=== PATIENT | male | born 1990 | race Caucasian/White ===

== ENCOUNTER 2017-05-22 21:44 | Emergency (ER) | payer BC ==
--- NOTE | 2017-05-22 22:10 | EDPHY ---
H & P Stated Complaint: LAC R SECOND DIGIT Time Seen by Provider: 05/22/17 22:10 HPI/ROS: HPI: This is a 27-year-old male presents with Chief Complaint: Left 2nd digit on right hand Location: Tip of left 2nd digit on right hand Quality: Cut Duration: Prior to arrival Signs and Symptoms: + bleeding, no radiation, no numbness, no weakness, no tingling, no decreased range of motion, no swelling, + pain Timing: Acute Severity: Moderate Context: Patient is right-hand dominant, was using a knife to open up a package of his new knife, when he slipped and accidentally cut the tip of his right 2nd finger. Immediately started to bleed and would not stop despite direct pressure. He notes moderate nonradiating pain that is worsened with touching the area. His tetanus is up-to-date. Modifying Factors: Direct pressure Comment: ROS: see HPI Constitutional: No fever, no chills, no weight loss Eyes: No blurred vision Respiratory: No shortness of breath, no cough Cardiovascular: No chest pain Gastrointestinal: No nausea, no vomiting no diarrhea Genitourinary: No dysuria Extremities: No myalgias Neurologic: No weakness, no numbness Skin: No rashes Hematologic: No bruising, no bleeding MEDICAL/SURGICAL/SOCIAL HISTORY: PSH: T&A PMH: bi polar; generalized anxiety Social history: Employed. CONSTITUTIONAL: Anxious adult male, awake and alert, no obvious distress HEENT: Atraumatic and normocephalic, PERRL, EOMI. Tympanic membranes clear. Oropharynx clear, no exudate and moist pink mucosa. Airway patent. No lymphadenopathy. No meningismus. Cardiovascular: Normal S1/S2, regular rate, regular rhythm, without murmur rub or gallop. PULMONARY/CHEST: Symmetrical and nontender. Clear to auscultation bilaterally. Good air movement. No accessory muscle usage. ABDOMEN: Soft, nondistended, nontender, no rebound, no guarding, no peritoneal signs, no masses or organomegaly. No CVAT. EXTREMITIES: 2/2 radial pulses, strength 5/5, right 2nd digit distal tip; 1 cm linear, simple laceration, sparing the nail. DIP/PIP/MCP flexion, extension, light touch sensation fully intact. no deformities, no clubbing, no cyanosis or edema. NEUROLOGICAL: no focal neuro deficits. GCS 15. SKIN: Warm and dry, no erythema. no rash. Good capillary refill. Source: Patient Exam Limitations: No limitations - Personal History Current Tetanus Diphtheria and Acellular Pertussis (TDAP): Yes Tetanus Vaccine Date: 2012 - Medical/Surgical History Hx Asthma: Yes Hx Chronic Respiratory Disease: No Hx Diabetes: No Hx Cardiac Disease: No Hx Renal Disease: No Hx Cirrhosis: No Hx Alcoholism: Yes Hx HIV/AIDS: No Hx Splenectomy or Spleen Trauma: No Other PMH: PSH: T&A. PMH: bi polar; generalized anxiety - Social History Smoking Status: Heavy smoker Constitutional: Initial Vital Signs Temperature (C) 37.2 C 05/22/17 21:59 Heart Rate 105 H 05/22/17 21:59 Respiratory Rate 16 05/22/17 21:59 Blood Pressure 136/85 H 05/22/17 21:59 O2 Sat (%) 96 05/22/17 21:59 O2 Delivery Mode Room Air Allergies/Adverse Reactions: propranolol Allergy (Verified 01/29/15 13:09) shellfish derived [shrimp] Allergy (Verified 01/29/15 13:10) Home Medications: Medication Instructions Recorded Gabapentin 01/29/15 LaMICtal 01/29/15 Risperidone 01/29/15 Medical Decision Making Procedures: Procedure: Laceration repair. Verbal consent was obtained from the patient. The 1 cm, simple, linear laceration on the distal tip of right 2nd digit was anesthetized in the usual fashion using a digital block. The wound was irrigated, draped and explored to its base with a gloved finger. There were no deep structures involved. No tendon injury was identified. The wound was repaired with #2, 6-0 Prolene in a simple interrupted pattern. Good hemostasis was achieved and clean sterile dressing applied. The procedure was performed by myself. ED Course/Re-evaluation: Tetanus up-to-date Wound and laceration repair; dressing applied No signs of neurovascular compromise/tenting of skin/compartment syndrome/ extremities and joints examined above and below area of concern and are neurovascularly intact. This patient was seen under the supervision of my secondary supervising physician. I evaluated care for this patient independently. Patient's presentation, labs/imaging, treatment and plan of care were discussed with secondary supervising physician. Differential Diagnosis: Differential diagnosis includes but is not limited to laceration, nail involvement, tendon injury, nerve injury, fracture, foreign body. Departure - Departure Disposition: Home, Routine, Self-Care Clinical Impression: Laceration of finger of right hand Qualifiers: Encounter type: initial encounter Finger: index finger Damage to nail status: without damage Foreign body presence: without foreign body Qualified Code(s): S61.210A - Laceration without foreign body of right index finger without damage to nail, initial encounter Condition: Good Instructions: Finger Laceration (ED) Additional Instructions: Keep the dressing dry and in place for 48 hours. After 48 hours, you may remove the dressing; wash the site daily with mild soap and water; then pat dry. Take Tylenol 650 mg every 4 hours and/or Ibuprofen 600 mg every 8 hours with food as needed for pain. Apply ice for 30 minutes at a time; 2-3 times per day for the next 1-2 days. Return to the emergency room in 7-10 days to have your stitches removed. Monitor for signs of infection. Referrals: [facility],. [Clinic] - As per Instructions
[2017-05-22 22:55] VITALS: BP 132/84; PULSE 74; RESP 14; TEMP 97.7; O2SAT 97
== END 2017-05-22 22:54 | disposition home or self-care (01) ==
PROC: 0HQFXZZ Repair Right Hand Skin, External Approach (ICD-10-PCS; principal; 2017-05-22)
DX: S61.210A Laceration without foreign body of right index finger without damage to nail, initial encounter (principal); F17.200 Nicotine dependence, unspecified, uncomplicated; J45.909 Unspecified asthma, uncomplicated; W26.0XXA Contact with knife, initial encounter

== ENCOUNTER 2017-05-29 23:36 | Emergency (ER) | payer BC ==
[2017-05-29 23:47] VITALS: BP 127/76; PULSE 110; RESP 18; TEMP 97.5; O2SAT 98
--- NOTE | 2017-05-29 23:49 | EDPHY ---
H & P Time Seen by Provider: 05/29/17 23:40 HPI/ROS: CHIEF COMPLAINT: "I can't sleep " HISTORY OF PRESENT ILLNESS: 27-year-old male history of bipolar disorder complaining of insomnia. Used methamphetamine 2 weeks ago. No suicidal or homicidal ideation. No hallucination. No self-injury. He drove himself to the ER PHYSICAL EXAM (Prior to examination, patient consented to physical exam, hands were washed and my usual and customary physical exam procedures followed) 1) GENERAL: Well-developed, well-nourished, alert and oriented. Appears anxious. 2) HEAD: Normocephalic 3) HEENT: sclera anicteric 4) LUNGS: Breathing comfortably. Smoking Status: Heavy smoker Allergies/Adverse Reactions: propranolol Allergy (Verified 05/29/17 23:47) shellfish derived [shrimp] Allergy (Verified 05/29/17 23:47) Home Medications: Medication Instructions Recorded Gabapentin 01/29/15 LaMICtal 01/29/15 Risperidone 01/29/15 MDM/Departure - [facility] ED Course/Re-evaluation: 11:49 p.m.: It is currently Tuesday night. The patient did not know where he he could go to discuss his increased anxiety and insomnia. He denies suicidal or homicidal ideation. He did use methamphetamine 2 weeks ago. He is currently answering questions appropriately. We discussed options including providing benzodiazepine at this time however as he drove he declines this option. He is noted to be tachycardic at 110 bpm. He has no complaints of pain or discomfort. No chest pain. I recommended further evaluation in the ER however upon learning of the 24 hr mental health walk-in clinic he states that he would like to drive himself there to be evaluated. He denies suicidal or homicidal ideation. I do not think he meets criteria for an M1 hold at this time. Care of patient under supervision of secondary supervising physician Dr Daniel . - Depart Disposition: Home, Routine, Self-Care Clinical Impression: Insomnia Qualifiers: Insomnia type: other insomnia Qualified Code(s): G47.09 - Other insomnia Condition: Good Instructions: Insomnia (ED) Stand Alone Forms: Work Excuse Referrals: [facility],. [Clinic] - As per Instructions (Go directly to [facility]in [facility] at [address] [place] [address], [place], [place] )
== END 2017-05-30 00:01 | disposition home or self-care (01) ==
DX: G47.09 Other insomnia (principal); F17.200 Nicotine dependence, unspecified, uncomplicated

== ENCOUNTER 2017-10-11 01:48 | Emergency (ER) | payer BC ==
--- NOTE | 2017-10-11 02:04 | EDPHY ---
H & P Stated Complaint: c/o swelling/pain in L groin/testicle, thinks may have a hernia Time Seen by Provider: 10/11/17 02:04 HPI/ROS: HPI CHIEF COMPLAINT: Left testicle pain, left epididymal cord pain HISTORY OF PRESENT ILLNESS: Patient 27-year-old male, he is otherwise healthy but does have a history of bipolar disorder, has had urinary tract infection in the past and epididymitis, he presents emergency room with left-sided testicular pain and left epididymis pain. Patient reports last he went to his Family Medicine office and was tested for urinary tract infection and STI. He is paced on Keflex for UTI. He does not know the culture results nor does he know the testing of the STI. He states approximately an hour ago developed some left testicular pain and swelling. Decided come the emergency room for evaluation. He does report a clear drip from his penis as well. Endorses dysuria still. No fever. No back pain. Denies abdominal pain. The pain goes from is less testicle up his left epididymal cord. And reports that swollen. No trauma. No skin lesions. Past Medical History: Epididymitis, bipolar disorder, UTI Past Surgical History: No recent surgery Social History: Denies drugs alcohol tobacco. Family History: Noncontributory ROS REVIEW OF SYSTEMS: A comprehensive 10 point review of systems is otherwise negative aside from elements mentioned in the history of present illness. Exam Constitutional triage nursing summary reviewed, vital signs reviewed, awake/ alert. Eyes normal conjunctivae and sclera, EOMI, PERRLA. HENT normal inspection, atraumatic, moist mucus membranes, no epistaxis, neck supple/ no meningismus, no raccoon eyes. Respiratory clear to auscultation bilaterally, normal breath sounds, no respiratory distress, no wheezing. Cardiovascular rate normal, regular rhythm, no murmur, no edema, distal pulses normal. Gastrointestinal soft, non-tender, no rebound, no guarding, normal bowel sounds, no distension, no pulsatile mass. Genitourinary this is a circumcised male, normal cremasteric reflex, normal testicular lie, tender palpation with gentle lifting up on the left testicle, tender palpation down the epididymal cord, no visible hernia. No visible lesions. No pus coming from penile head. No shaft pain. No glands pain. Right testicle normal right epididymal cord normal. No inguinal lymphadenopathy visualized. Musculoskeletal no midline vertebral tenderness, full range of motion, no calf swelling, no tenderness of extremities, no meningismus, good pulses, neurovascularly intact. Skin pink, warm, & dry, no rash, skin atraumatic. Neurologic awake, alert and oriented x 3, AAOx3, moves all 4 extremities equally, motor intact, sensory intact, CN II-XII intact, normal cerebellar, normal vision, normal speech. Psychiatric normal mood/affect. Heme/Lymph/Immune no lymphadenopathy. Differential Diagnosis: Includes but is not limited to in a particular order, UTI, testicular torsion, cystitis, urethritis, STI, gonorrhea, chlamydia, epididymitis, orchitis, varicocele Medical Decision Making: Plan for this patient ultrasound scrotum to rule out testicular torsion, check UA clean, check dirty catch, ibuprofen 800 mg for pain control, p.o. Fluids. Re-evaluate. Re-evaluation: 0314: Patient's ultrasound shows most likely orchitis/epididymitis. There is increased blood flow to the left testes. No evidence of Loss of blood flow or torsion. Patient's urinalysis shows nitrite positive. This is despite being on Keflex orally for recently diagnosed with the UTI. Here in the emergency room I have ordered him IM Rocephin 250 mg, and 2 g of azithromycin for possible STI coverage. As he had a clear drainage from his penile meatus. None on exam. Additionally I will prescribe him doxy for orchitis/epididymitis. Additionally will give him a Urology referral. Additionally understands return emergency room if develops worsening pain, swelling, fever, urinary symptoms. 0345: I did go re-evaluate him he is resting comfortably. Pain well controlled. Tenderness down the epididymal cord. Ultrasound reviewed and urinalysis reviewed. Recommend close follow-up with urology. Additionally recommend return emergency room if there is worsening symptoms He received IM Rocephin here as well as p.o. As a throat. Placed on doxy. Return if worsening symptoms. Source: Patient - Personal History Tetanus Vaccine Date: 2012 - Medical/Surgical History Hx Asthma: Yes Hx Chronic Respiratory Disease: No Hx Diabetes: No Hx Cardiac Disease: No Hx Renal Disease: No Hx Cirrhosis: No Hx Alcoholism: Yes Hx HIV/AIDS: No Hx Splenectomy or Spleen Trauma: No Other PMH: PSH: T&A. PMH: bi polar; generalized anxiety, add, asthma as a child - Social History Smoking Status: Heavy smoker Constitutional: Initial Vital Signs Temperature (C) 37.1 C 10/11/17 01:58 Heart Rate 84 10/11/17 01:58 Respiratory Rate 18 10/11/17 01:58 Blood Pressure 133/88 H 10/11/17 01:58 O2 Sat (%) 99 10/11/17 01:58 O2 Delivery Mode Room Air Allergies/Adverse Reactions: ciprofloxacin Allergy (Verified 10/11/17 02:02) propranolol Allergy (Verified 10/11/17 02:02) shellfish derived [shrimp] Allergy (Verified 10/11/17 02:02) Home Medications: Medication Instructions Recorded Gabapentin 01/29/15 LaMICtal 01/29/15 Risperidone 01/29/15 Doxycycline Hyclate 100 mg PO BID #20 tab 10/11/17 Hydrocodone/APAP 5/325 [[place] 1 - 2 tab PO Q4H PRN #10 tab 10/11/17 5/325] Ibuprofen [Motrin (*)] 800 mg PO Q6-8PRN #20 tab 10/11/17 Medical Decision Making - Data Points Laboratory Results: 10/11/17 10/11/17 02:45 02:45 Urine Color SARINA Urine Appearance CLEAR Urine pH 5.0 (5.0-7.5) Ur Specific [place] 1.021 (1.002-1.030) Urine Protein NEGATIVE (NEGATIVE) Urine Ketones NEGATIVE (NEGATIVE) Urine Blood NEGATIVE (NEGATIVE) Urine Nitrate POSITIVE H (NEGATIVE) Urine Bilirubin NEGATIVE (NEGATIVE) Urine Urobilinogen 4.0 EU H EU (0.2-1.0) Ur Leukocyte Esterase NEGATIVE (NEGATIVE) Urine RBC 1-3 /hpf /hpf (0-3) Urine WBC 1-3 /hpf /hpf (0-3) Ur Epithelial Cells NONE SEEN /lpf /lpf (NONE-1+) Urine Bacteria TRACE /hpf H /hpf (NONE SEEN) Urine Mucus TRACE /lpf /lpf (NONE-1+) Urine Glucose NEGATIVE (NEGATIVE) N.gonorrhoeae RNA (TMA) Pending Medications Given: Discontinued Medications Ibuprofen (Motrin) 800 mg PO EDNOW ONE Stop: 10/11/17 02:19 Last Admin: 10/11/17 02:44 Dose: 800 mg Departure - Departure Disposition: Home, Routine, Self-Care Clinical Impression: Epididymitis Condition: Good Instructions: Epididymitis (ED), Epididymo-Orchitis (ED) Additional Instructions: 1. Take anti-inflammatory pain medicine. 2. [place] for severe pain. 3. Follow up with Urology. Call their for 1st available appointment. 4. Return emergency room if you have worsening pain fever, vomiting. 5. Antibiotics as prescribed. Referrals: NONE *PRIMARY CARE P,. [Primary Care Provider] - As per Instructions Harish Craven MD [Medical Doctor] - As per Instructions Prescriptions: Doxycycline Hyclate 100 mg PO BID #20 tab Hydrocodone/APAP 5/325 [[place] 5/325] 1 - 2 tab PO Q4H PRN #10 tab PRN Reason: Pain, Moderate Ibuprofen [Motrin (*)] 800 mg PO Q6-8PRN #20 tab
[2017-10-11] MEDS ORDERED: IBUPROFEN 800 MG TAB PO ONE (02:18)
[2017-10-11] MEDS ORDERED: AZITHROMYCIN 250 MG TAB PO ONE (03:12)
[2017-10-11 04:08] VITALS: BP 112/80
== END 2017-10-11 04:08 | disposition home or self-care (01) ==
DX: N45.1 Epididymitis (principal); B96.89 Other specified bacterial agents as the cause of diseases classified elsewhere; J45.909 Unspecified asthma, uncomplicated; F17.200 Nicotine dependence, unspecified, uncomplicated
CPT/HCPCS: J0696

== ENCOUNTER 2018-03-30 22:26 | Emergency (ER) | payer BC, OTHER ==
--- NOTE | 2018-03-30 22:37 | EDPHY ---
H & P Time Seen by Provider: 03/30/18 22:32 HPI/ROS: CHIEF COMPLAINT: Lower toe stone ketamine analog HISTORY OF PRESENT ILLNESS: Patient is a 28-year-old man who is staying at the sober living house. He has a history of polysubstance abuse and is currently on Suboxone. He was found unconscious in the bathroom and 911 was called. Initially was called as a cardiac arrest but by the time EMS arrived he was awake and alert and without complaint. He states that he took 2-Fluoro- deschloro-ketamine. He denies co-ingestants. He denies suicidal ideation. Severity: Moderate Modifying factors: None REVIEW OF SYSTEMS: Constitutional: denies: chills, fever, recent illness, recent injury EENTM: denies: blurred vision, double vision, nose congestion Respiratory: denies: cough, shortness of breath Cardiac: denies: chest pain, irregular heart rate, lightheadedness, palpitations Gastrointestinal/Abdominal: denies: abdominal pain, diarrhea, nausea, vomiting, blood streaked stools Genitourinary: denies: dysuria, frequency, hematuria, pain Musculoskeletal: denies: joint pain, muscle pain Skin: denies: lesions, rash, jaundice, bruising Neurological: denies: headache, numbness, paresthesia, tingling, dizziness, weakness Hematologic/Lymphatic: denies: blood clots, easy bleeding, easy bruising Immunologic/allergic: denies: HIV/AIDS, transplant 10 systems reviewed and negative except as noted EXAM: GENERAL: Well-appearing, well-nourished and in no acute distress. HEAD: Atraumatic, normocephalic. EYES: Pupils equal round and reactive to light, extraocular movements intact, sclera anicteric, conjunctiva are normal. ENT: TMs normal, nares patent, oropharynx clear without exudates. Moist mucous membranes. NECK: Normal range of motion, supple without lymphadenopathy or JVD. LUNGS: Breath sounds clear to auscultation bilaterally and equal. No wheezes rales or rhonchi. HEART: Regular rate and rhythm without murmurs, rubs or gallops. ABDOMEN: Soft, nontender, normoactive bowel sounds. No guarding, no rebound. No masses appreciated. BACK: No CVA tenderness, no spinal tenderness, step-offs or deformities EXTREMITIES: Normal range of motion, no pitting or edema. No clubbing or cyanosis. NEUROLOGICAL: Cranial nerves II through XII grossly intact. Normal speech, normal gait. 5/5 strength, normal movement in all extremities, normal sensation , normal reflexes PSYCH: Normal mood, normal affect. SKIN: Warm, dry, normal turgor, no visible rashes or lesions. Source: Patient, EMS Exam Limitations: No limitations - Personal History Tetanus Vaccine Date: 2012 - Medical/Surgical History Hx Asthma: Yes Hx Chronic Respiratory Disease: No Hx Diabetes: No Hx Cardiac Disease: No Hx Renal Disease: No Hx Cirrhosis: No Hx Alcoholism: Yes Hx HIV/AIDS: No Hx Splenectomy or Spleen Trauma: No Other PMH: PSH: T&A. PMH: bi polar; generalized anxiety, add, asthma as a child - Family History Significant Family History: No pertinent family hx - Social History Smoking Status: Heavy smoker Alcohol Use: Heavy Drug Use: Other Constitutional: Initial Vital Signs Temperature (C) 37.3 C 03/30/18 22:29 Heart Rate 84 03/30/18 22:29 Respiratory Rate 18 03/30/18 22:29 Blood Pressure 154/93 H 03/30/18 22:29 O2 Sat (%) 96 03/30/18 22:29 O2 Delivery Mode Room Air Allergies/Adverse Reactions: ciprofloxacin Allergy (Verified 10/11/17 02:02) propranolol Allergy (Verified 10/11/17 02:02) shellfish derived [shrimp] Allergy (Verified 10/11/17 02:02) Home Medications: Medication Instructions Recorded Gabapentin 01/29/15 LaMICtal 01/29/15 Risperidone 01/29/15 Ibuprofen [Motrin (*)] 800 mg PO Q6-8PRN #20 tab 10/11/17 Tamsulosin HCl [Flomax] 03/30/18 Medical Decision Making - Diagnostics EKG Interpretation: An EKG obtained and was read and documented in trace view. Please see trace view for full reading and report. Sinus rhythm, no acute ischemic changes, early repolarization, no interval abnormalities ED Course/Re-evaluation: Patient is completely normal appearing now with stable vital signs and no complaints. I spoke with poison Control who is not familiar with this particular derivative of ketamine but recommends basic typical toxicology practices. His case #[id number] I will obtain an EKG and lab work to check for, ingestants otherwise will likely be able to discharge the patient soon. He denies suicidality. He is probably not welcome back at the sober living house. 12:05 a.m. the patient is eager to leave. He is asymptomatic. His lab work and EKG are reassuring. His friend is going to take him in. Differential Diagnosis: Partial list of the Differential diagnosis considered include but were not limited to; substance abuse, overdose and although unlikely based on the history and physical exam, I also considered suicidality, infection, head injury , arrest. I discussed these differential diagnoses and the plan with the patient as well as the usual and expected course. The patient understands that the diagnosis is provisional and that in medicine we are not always correct and that further workup is often warranted. Usual and customary warnings were given. All of the patient's questions were answered. The patient was instructed to return to the emergency department should the symptoms at all worsen or return, otherwise to followup with the physician as we discussed. - Data Points Laboratory Results: Laboratory Results 03/30/18 22:30 03/30/18 22:30 03/30/18 03/30/18 22:30 22:30 WBC 10.96 10^3/uL H 10^3/uL (3.80-9.50) RBC 5.03 10^6/uL 10^6/uL (4.40-6.38) Hgb 15.3 g/dL g/dL (13.7-17.5) Hct 46.2 % % (40.0-51.0) MCV 91.8 fL fL (81.5-99.8) MCH 30.4 pg pg (27.9-34.1) MCHC 33.1 g/dL g/dL (32.4-36.7) RDW 12.8 % % (11.5-15.2) Plt Count 194 10^3/uL 10^3/uL (150-400) MPV 11.0 fL fL (8.7-11.7) Neut % (Auto) 59.6 % % (39.3-74.2) Lymph % (Auto) 33.5 % % (15.0-45.0) [place] % (Auto) 5.5 % % (4.5-13.0) Eos % (Auto) 0.6 % % (0.6-7.6) Baso % (Auto) 0.3 % % (0.3-1.7) Nucleat RBC Rel Count 0.0 % % (0.0-0.2) Absolute Neuts (auto) 6.53 10^3/uL H 10^3/uL (1.70-6.50) Absolute Lymphs (auto) 3.67 10^3/uL H 10^3/uL (1.00-3.00) Absolute Monos (auto) 0.60 10^3/uL 10^3/uL (0.30-0.80) Absolute Eos (auto) 0.07 10^3/uL 10^3/uL (0.03-0.40) Absolute Basos (auto) 0.03 10^3/uL 10^3/uL (0.02-0.10) Absolute Nucleated RBC 0.00 10^3/uL 10^3/uL (0-0.01) Immature Gran % 0.5 % % (0.0-1.1) Immature Gran # 0.06 10^3/uL 10^3/uL (0.00-0.10) Sodium 137 mEq/L mEq/L (135-145) Potassium 3.9 mEq/L mEq/L (3.3-5.0) Chloride 103 mEq/L mEq/L (97-110) Carbon Dioxide 23 mEq/l mEq/l (22-31) Anion Gap 11 mEq/L mEq/L (6-14) BUN 12 mg/dL mg/dL (7-23) Creatinine 1.0 mg/dL mg/dL (0.7-1.3) Estimated GFR > 60 Glucose 140 mg/dL H mg/dL (70-100) Calcium 10.9 mg/dL H mg/dL (8.5-10.4) Phosphorus 2.9 mg/dL mg/dL (2.5-4.5) Salicylates < 1.0 mg/dL L mg/dL (2.0-20.0) Acetaminophen < 10 mcg/mL L mcg/mL (10-30) Departure - Departure Disposition: Home, Routine, Self-Care Clinical Impression: Polysubstance abuse Condition: Good Instructions: Polysubstance Abuse (ED) Referrals: Patient,NotPresent [Unknown] - As per Instructions Roshni Resendez MD [Medical Doctor] - As per Instructions
--- NOTE | 2018-03-30 23:01 | CPEKG ---
Test Reason : OPEN Blood Pressure : / mmHG Vent. Rate : 066 BPM Atrial Rate : 068 BPM P-R Int : 186 ms QRS Dur : 104 ms QT Int : 374 ms P-R-T Axes : 002 130 059 degrees QTc Int : 392 ms Sinus rhythm Right axis deviation ST elev, probable normal early repol pattern Confirmed by Neil Awad ([id number]) on 03/30/2018 11:00:57 PM Referred By: Confirmed By:Neil Awad
[2018-03-30 23:03] LABS: PLATELET COUNT 194 10^3/uL (150-400)
[2018-03-31 00:15] VITALS: BP 138/74
== END 2018-03-31 00:16 | disposition home or self-care (01) ==
LOC: EDUNIT#
DX: F13.10 Sedative, hypnotic or anxiolytic abuse, uncomplicated (principal); F17.210 Nicotine dependence, cigarettes, uncomplicated
CPT/HCPCS: G0480